=== PATIENT | male | born 1950 | race Caucasian/White ===

== ENCOUNTER → 2020-06-13 11:18 | Outpatient (CLI) | payer OTHER, SELFPAY ==
--- NOTE | ~2020-06-13 | US_ITS ---
EXAMINATION: US retroperitoneal comp DATE: 06/13/2020 11:37 INDICATION: Flank pain. Nephrolithiasis. EXAMINATION: US retroperitoneal comp DATE: 06/13/2020 11:37 FINDINGS: The right kidney measures 12.3 x 4.6 x 6.0 cm. The left kidney measures 11.8 x 5.8 x 5.9 cm. The kidn eys demonstrate normal echogenicity. There is no hydronephrosis in either kidney. No evident shadowi ng nephrolithiasis. The bladder is normal. Incidentally noted is diffuse hepatic steatosis IMPRESSION: 1. Normal kidneys without hydronephrosis. 2. Diffuse hepatic steatosis. Reviewed, dictated and finalized at location B.
== END ==
PROVIDERS: PCP Family Medicine; Visit Provider Family Medicine
DX: R10.9 Unspecified abdominal pain (principal); K76.0 Fatty (change of) liver, not elsewhere classified
CPT/HCPCS: 76770